=== PATIENT | male | born 1980 | race Caucasian/White ===

== ENCOUNTER 2024-09-29 19:27 | Emergency (ER) | payer OTHER, SELFPAY ==
--- OUTSIDE RECORDS SUMMARY | 2024-09-29 19:30 | XMS_ITS | Patient Health Record ---
Author Organization [facility] Address [address] [place] [address] Support Name Relationship Address Phone Kat Harden Emergency Contact [address] [place], [address] Unavailable Juno Parra Guarantor Unknown [phone] Reason For Referral No Information Plan Of Treatment No Information
== END 2024-09-29 19:40 | disposition left against medical advice (07) ==
LOC: ANHED 20:13
DX: Z53.21 Procedure and treatment not carried out due to patient leaving prior to being seen by health care provider (principal)
CPT/HCPCS: 99199